=== PATIENT | male | born 1955 | race Hispanic/Latino ===

== ENCOUNTER 2018-07-07 12:10 | Observation (INO) | payer OTHER ==
[~2018-07-07] VITALS: Ht 162.6 cm; Wt 81.8 kg
[2018-07-07] MEDS ORDERED: MORPHINE SULFATE INJ 4 MG/ML INJ IV STA (12:30)
[2018-07-07 13:03] LABS: BASOPHILS # (AUTO) 0.1 (0.0-0.1); BASOPHILS % 0.6 % (0.0-1.0); EOSINOPHILS # (AUTO) 0.1 (0.0-0.4); EOSINOPHILS % 1.4 % (0.0-6.0); HEMATOCRIT 45.8 % (38.2-49.6); HEMOGLOBIN 15.7 g/dL (14.0-18.0); LYMPHOCYTES # (AUTO) 2.4 (1.0-3.2); LYMPHOCYTES % 28.1 % (18.0-39.1); MEAN CORPUSCULAR HGB CONC 34.3 g/dL (31-35); MEAN CORPUSCULAR VOLUME 99.1 fL (81-99); MONOCYTES # (AUTO) 0.8 (0.2-0.8); MONOCYTES % 9.8 % (4.4-11.3); PLATELET COUNT 223 x10e3/uL (140-360); RED BLOOD COUNT 4.62 x10e6/uL (4.3-5.7); RED CELL DISTRIBUTION WIDTH 12.7 % (11.7-14.4)
[2018-07-07 13:12] LABS: INR 1.11; PROTHROMBIN TIME 13.5 seconds (11.9-14.5)
[2018-07-07 13:13] LABS: PARTIAL THROMBOPLASTIN TIME 37.1 seconds (23.8-35.5)
[2018-07-07 13:23] LABS: ALANINE AMINOTRANSFERASE 34 IU/L (0-55); ALBUMIN 4.1 g/dL (3.5-5.0); ALBUMIN/GLOBULIN RATIO 1.1 (0.8-2.0); ALKALINE PHOSPHATASE 237 IU/L (40-150); AMYLASE 68 U/L (25-125); ANION GAP 10.1 mmol/L (8-16); BLOOD UREA NITROGEN 17 mg/dL (7-26); BUN/CREATININE RATIO 20 (6-25); CALCIUM 12.6 mg/dL (8.4-10.2); CARBON DIOXIDE 25 mmol/L (22-29); CHLORIDE 107 mmol/L (98-107); CREATINE KINASE 140 IU/L (30-200); CREATININE, SERUM 0.83 mg/dL (0.72-1.25); EST GLOMERULAR FILTRATION RATE > 60 ML/MIN (60-); GLUCOSE 95 mg/dL (74-118); LIPASE 10 U/L (8-78); MAGNESIUM 2.1 MG/DL (1.3-2.1); POTASSIUM 4.1 mmol/L (3.5-5.1); SODIUM 138 mmol/L (136-145)
[2018-07-07 14:09] LABS: CLARITY,URINE CLOUDY (CLEAR); COLOR,URINE YELLOW (YELLOW); LEUKOCYTE ESTERASE ,URINE TRACE (NEGATIVE); NITRITE,URINE NEGATIVE (NEGATIVE); PROTEIN,URINE DIPSTICK TRACE (NEGATIVE)
[2018-07-07 14:10] LABS: BILIRUBIN,URINE NEGATIVE (NEGATIVE); KETONES,URINE NEGATIVE (NEGATIVE); URINE UROBILINOGEN 0.2 mg/dL (0.2 - 1)
[2018-07-07] MEDS ORDERED: MORPHINE SULFATE INJ 4 MG/ML INJ IV ONE (14:15)
[2018-07-07 14:16] LABS: AMORPHOUS SEDIMENT,URINE FEW (FEW); BACTERIA,URINE MANY /HPF; EPITHELIAL CELLS,URINE RARE /LPF; RBC,URINE 0-5 /HPF (0-5)
--- NOTE | 2018-07-07 14:30 | Diagnostic Imaging Report ---
Examination: Single AP view of the chest. COMPARISON: None. INDICATION: Chest pain IMPRESSION: 1. Lines and Tubes: None 2. Lungs are grossly clear. No consolidation or effusion. 3. Cardiomediastinal silhouette is normal. Pulmonary vasculature is normal. 4. No acute bony abnormalities. Signed by: Dr. Georgi Albert M.D. on 07/07/2018 2:27 PM
[2018-07-07] MEDS ORDERED: ASPIRIN 81 MG CHEW TAB PO ONE (15:45)
[2018-07-07 17:45] VITALS: BP_SYST 141; BP_SYST 144; BP_DIAS 82; BP_DIAS 84
[2018-07-07 17:49] VITALS: BP 141/82
--- NOTE | 2018-07-07 19:20 | Diagnostic Imaging Report ---
EXAM: CTA OF THE THORACIC AORTA INDICATION: Aortic aneurysm. Chest pain. COMPARISON: None. TECHNIQUE: Multi-detector CT technology was employed. CTA of the chest was performed , after the administration of IV contrast. For optimization of anatomic evaluation, multiplanar reconstruction, maximum intensity projections, and advanced 3-D off-line postprocessing were performed on a dedicated stand-alone workstation under the direct supervision of the interpreting physician. IV CONTRAST: 100 mL of Isovue-370 ORAL CONTRAST: None COMPLICATIONS: None RADIATION DOSE: Total DLP: 465.11 mGy*cm Estimated effective dose: (DLP x 0.015 x size factor) mSv CTDIvol has been reviewed. It is below the limits set by the Radiation Protocol Committee (RPC). For optimization of anatomic evaluation, multiplanar reconstruction, maximum intensity projections, and advanced 3-D off-line postprocessing were performed on a dedicated stand-alone workstation under the direct supervision of the interpreting physician. FINDINGS: CHEST: Mediastinum: The chest wall, mediastinum, and pericardium are unremarkable. No significant adenopathy is identified in the axilla, mediastinum, and clementine. The pulmonary arteries appear normal. Although this examination was not tailored for the evaluation of pulmonary emboli, there is no embolus in the main pulmonary arteries. Lungs and pleura: Lung windows reveal no acute abnormalities. There is no pulmonary parenchymal mass or pleural effusion. There are bilateral, fat-containing Bochdalek diaphragmatic hernias. Heart: The cardiac chambers demonstrate normal atrioventricular and ventriculoarterial concordance, and systemic and pulmonary venous return. The cardiac chamber sizes appear normal. The coronary arteries have normal origins and courses. There are scattered coronary calcifications identified, though this study was not optimized for coronary artery evaluation. Aorta: Aortic valve morphology is incompletely assessed on this non-gated examination. The thoracic aorta is normal in course, caliber, and contour. There are atherosclerotic calcifications of the thoracic aorta, but no acute aortic pathology, such as dissection, intramural hematoma, or contained rupture. The arch vessel branching pattern is normal . All of the arch branch vessels appear widely patent in their proximal portions. Coal Equipment Operator dimensions of the thoracic aorta are as follows: 2.0 cm at the aortic annulus (series 4, image 273) 3.2 cm at the sinuses of Valsalva (the sinotubular junction is preserved, image 48, series 401) 3.1 cm at the mid ascending aorta (series 401, image 49) 3.0 cm at the distal ascending aorta (series 4, image 201) 2.4 cm at the mid transverse arch (series 4, image 145) 2.5 cm at the proximal descending thoracic aorta (series 4, image 185) 2.1 cm at the diaphragmatic hiatus (series 4, image 409). Limited Abdomen: The limited images of the upper abdomen reveal no abnormalities of the visualized organs. Bones: Multilevel degenerative changes of the thoracic spine. Soft Tissues: Unremarkable IMPRESSION: Mildly atherosclerotic calcifications of the thoracic aorta. No aortic aneurysm or dissection. Signed by: Dr. Guanako Rodriguez M.D. on 07/07/2018 7:17 PM
[2018-07-07] MEDS: TRAMADOL HCL 50 MG TAB PO PRN (19:46)
[2018-07-07 20:07] VITALS: BP 142/76
[2018-07-07 21:38] LABS: CREATINE KINASE MB 2.9 ng/mL (0-5.0)
--- NOTE | 2018-07-07 23:05 | History and Physical ---
CHIEF COMPLAINT: Chest pain. HISTORY OF PRESENT ILLNESS: A 62-year-old male patient with longstanding history of smoking for more than 35 years and also used to drink moderate to heavy in the past almost every day, which he has cut down in the last 1 year, went for routine physical through Dr. Castano, also complained of chest pain for 2 weeks in the left anterior chest, radiating to right upper arm and to the back. Pain is more exertional and at rest, so the patient was sent to the emergency room. His EKG was normal. Cardiac enzymes normal. The patient denies shortness of breath. PAST MEDICAL HISTORY: Nothing significant. ALLERGIES: NONE. MEDICATIONS: None. PERSONAL HISTORY: Chronic smoking, chronic alcohol. SURGERIES: None. PHYSICAL EXAMINATION VITALS: Blood pressure 141/82, pulse 78, temperature 98.7. HEENT: Normal. NECK: No JVD. LUNGS: Bilateral air entry normal. ABDOMEN: Soft. Bowel sounds normal. LOWER EXTREMITIES: No edema. ACID BATH MIXER: Normal. ASSESSMENT: Chest pain with history of chronic smoking and alcohol, most likely angina. However, in view of radiating pain to the back, will consider doing a computed tomographic scan to rule out aneurysm of aorta. Admit the patient and cardiology consultation. Telemetry. Computed tomography chest stat. Job#: [id number]
[2018-07-07 23:38] VITALS: BP 118/66
[2018-07-08] MEDS ORDERED: IOPAMIDOL 370 MG/ML 200 ML INFUS..BTL INJ ONE (00:48)
[2018-07-08] MEDS ORDERED: SODIUM CHLORIDE 0.9% 50ML 50 ML ONE (00:48)
[2018-07-08 04:56] VITALS: BP 129/71
[2018-07-08 05:33] LABS: CHOL/HDL RATIO 4.1 (3.9-4.7); CHOLESTEROL 182 MD/DL (0-199); CREATINE KINASE 74 IU/L (30-200); HDL CHOLESTEROL 44 MG/DL (40-60); LDL CHOLESTEROL 114 MG/DL (60-130); TRIGLYCERIDES 121 MG/DL (0-149)
--- NOTE | 2018-07-08 08:28 | Consultation ---
DATE OF CONSULTATION: July 07, 2018 REASON FOR CONSULTATION: Chest pain. CONSULTING PHYSICIAN: Dr. Singh HPI: This is a 62-year-old male that presented with back pain. According to the patient, for the last 1 week he has been having chronic lower back pain that gets worse when he gets out of the bed accompanied with chest tightness. He stated that the chest pain comes and goes, and that feels like a tight pressure on a scale of 5/10 that radiated to the left side of the back. He stated he had no medical history. Not on any medications. He smokes and drinks daily. Troponin times 3 was negative. EKG showed no S/T abnormalities. PAST MEDICAL HISTORY: None. PAST SURGICAL HISTORY: Right hand surgery. FAMILY HISTORY: Noncontributory. SOCIAL HISTORY: He smokes and drinks daily. Lives at home alone. MEDICATIONS: See med list. ALLERGIES: HE IS NOT ALLERGIC TO ANY MEDICATIONS. REVIEW OF SYSTEMS: Negative except as mentioned above. He is positive for chest pain and back pain. PHYSICAL EXAMINATION VITAL SIGNS: Temperature 97, heart rate 62, blood pressure 129/71, respirations 20, oxygen saturation 96% on room air. GENERAL: He is awake alert, and oriented times 3. HEENT: Mucous membrane moist. NECK: Supple. LUNGS: Bilateral clear to auscultation. CARDIOVASCULAR: S1 and S2 present. ABDOMEN: Soft. NEUROLOGICAL: Intact. EXTREMITIES: With no edema. LABS: Sodium 138, potassium 4.1, chloride 107, CO2 25, BUN 17, creatinine 0.83, glucose 95. White blood cells 8.37, hemoglobin 15.7, hematocrit 45.8, and platelets 223,000. PT 13.5, PTT 37.1. IMPRESSION 1. Chest pain. 2. Back pain. 3. Tobacco and alcohol abuse. ASSESSMENT AND PLAN: He is pending an echocardiogram to assess the LV and the valve function. Cardiac enzymes times 3 was negative. He is complaining more of back pain. He can be followed up as an outpatient for possible stress test. His alkaline phosphatase was elevated at 237. He might require some x-rays of the back. Further cardiac workup pending clinical course. Thank you for this consultation. DICTATED BY JENNA BOSE NP Job#: [id number] VT
[2018-07-08 09:47] VITALS: BP 132/64
[2018-07-08] MEDS: TRAMADOL HCL 50 MG TAB PO PRN (13:15)
[2018-07-08 16:05] VITALS: BP 132/64
[2018-07-08 17:45] VITALS: BP 138/77
[2018-07-08] MEDS ORDERED: ASPIRIN 81 MG CHEW TAB PO ONE (18:45)
--- NOTE | 2018-07-08 19:15 | Discharge Summary ---
A 62-year-old male patient with history of chronic smoking and alcohol was seen by Dr. Castano with chest pain radiating to back. Patient was admitted. His cardiac enzymes normal, EKG normal. Seen by black studies professor, Dr. Anderson. Patient had a CT of the chest, showed mild atherosclerotic calcification of thoracic aorta, no aortic aneurysm or dissection. Patient also localized the pain to the upper back. He will be discharged home, advised to follow up with the PCP, Dr. Castano, and Dr. Anderson. He will have a stress test as outpatient and further workup and treatment for his back pain. DISCHARGE DIAGNOSES 1. Chest pain. 2. Atherosclerosis of the aorta. 3. Atherosclerotic heart disease. SANGITA LESLIE MD Job#: [id number] JUAN ALBERTO
[2018-07-08] MEDS ORDERED: ATORVASTATIN 20 MG TAB PO SCH (21:00)
== END 2018-07-08 19:56 | disposition home or self-care (01) ==
LOC: ER 12:10 → ERHOLD 15:51 → MED/SURG2 17:44
PROVIDERS: ADMIT Internal Medicine; ATTEND Internal Medicine
DX: R07.9 Chest pain, unspecified (principal); I70.0 Atherosclerosis of aorta; G89.29 Other chronic pain; I25.10 Atherosclerotic heart disease of native coronary artery without angina pectoris; Z72.0 Tobacco use; F10.10 Alcohol abuse, uncomplicated
CPT/HCPCS: 36415 ×2; 71045; 71275; 80053; 80061; 81001; 82150; 82550 ×2; 82553 ×2; 83690; 83735; 83880; 84484 ×2; 85025; 85610; 85730; 93005; 93306; 99284; G0378 ×2; J2270; Q9967